=== PATIENT | female | born 1940 | race Caucasian/White ===

== ENCOUNTER → 2017-06-09 | Outpatient (CLI) | payer MEDICARE ==
[~2017-06-09] MED LIST: ACTOPLUS MET 851 TAB PO; AMITRIPTYLINE 225 MG PO; ASPIRIN 325MG325 MG PO; BACLOFEN 10MG T10 MG PO; BUSPAR 5MG TAB5 MG PO; BUSPIRONE 5MG TA5 MG PO; CIPROFLOXACIN500 MG PO; COLACE GENERIC100 MG PO; CRESTOR20 MG PO; CRESTOR40 MG PO; DULOXETINE60 MG PO; FERROUS SULFAT325 M2 PO; GABAPENTIN300 MG PO; HYDROCHLOROTH12.5 M1 PO; HYDROCODONE-APA1 TA1 PO; LEVOCETIRIZINE D5 MG PO; LEVOTHYROXIN0.075 MG PO; LEVOTHYROXIN0.088 M2 PO; LEVOTHYROXIN0.125 MG PO; LISINOPRIL 5MG T5 MG PO; LORATADINE 10MG10 M1 PO; MELOXICAM15 MG PO; METOPROLOL SUCC25 M2 PO; METOPROLOL25 MG PO; MS CONTIN15 MG PO; NORCO 325 MG-51 TAB PO; SERTRALINE 50MG50 MG PO; TRAMADOL 50MG T50 MG PO; TRAMADOL50 M1 PO; VITAMIN B-121 TAB PO; VITAMIN D31000 IU PO; ZOFRAN4 MG PO; ZOLOFT 50MG TAB50 MG PO
--- NOTE | 2017-06-09 12:58 | RADIOLOGY REPORT PS360 ---
BONE DENSITOMETRY(HIP:LT SPINE HISTORY: POST MENOPAUSAL ORDERING PHYSICIAN: Nai Martell MD PATIENT AGE: 76 years COMPARISON: None FINDINGS: Bone density of the forearm radius 33% is 0.624 g percent meters squared with a T score of -3.0 consistent with osteoporosis with high fracture risk. Pharmacological treatment recommended. Recommend follow up exam in one year. Left hip density has a T score of -1.6 in the lumbar spine density has a T score of 2.9 IMPRESSION: Osteoporosis. Recommend follow up exam May 2018
--- NOTE | 2017-06-10 16:18 | RADIOLOGY REPORT PS360 ---
DIG MAMM-SCREEN [facility] W/CAD CAD Screening ORDERING PHYSICIAN : Nai Martell MD PATIENT AGE: 76 years GENDER: Female COMPARISON:. Only 2007; & 2001 older film screen mammogram available INDICATION: Routine screening 76-year-old. No hormones. No new complaints. Noncontributory family history. TECHNIQUE: Standard CC and MLO images were obtained. R2 CAD reviewed. FINDINGS: . Low-density breast bilaterally with no dominant mass nor suspicious calcifications nor architectural distortion. Generalized fatty change RIGHT BREAST: Cc view unremarkable. On the MLO there is a tiny area of minimal density at or just beneath the skin at the superior breast on MLO view. Most likely skin related & only evident due to the the newerdigital mammographic technique. Is there a skin mole or skin tag this region?. Follow-up in one year the adequate & recommended LEFT BREAST: Unremarkable with no change and no new areas of concern IMPRESSION: No areas of significant concern Scant minimal density just beneath the skin at the far superior right breast-most likely a skin tag or skin mole Bilateral follow-up in one year recommended to confirm stability BI-RADS CATEGORY: 2_Benign RECOMMENDED FOLLOWUP: 12M 12 MONTH FOLLOW-UP (A letter has been sent to the patient regarding results of the study.)
== END ==
LOC: RAD 10:10
DX: Z12.31 Encounter for screening mammogram for malignant neoplasm of breast (principal); Z78.0 Asymptomatic menopausal state; Z13.820 Encounter for screening for osteoporosis
CPT/HCPCS: G0202